=== PATIENT | female | born 1980 | race Caucasian/White ===

== ENCOUNTER 2021-04-19 17:29 | Emergency (ER) | payer MEDICAID ==
[~2021-04-19] VITALS: Ht 165.1 cm; Wt 82.6 kg
[2021-04-19 17:39] VITALS: BP 141/88
--- NOTE | 2021-04-19 17:42 | NUR ---
PT TO WAIT IN TRIAGE ROOM FOR D/C INSTRUCTIONS.
--- NOTE | 2021-04-19 17:43 | NUR ---
BREANA LAUREANO IN TRIAGE FOR FURTHER PATIENT EVALUATION.
[2021-04-19] MEDS ORDERED: POLY10SO3 OP (17:49)
--- NOTE | 2021-04-19 18:00 | NUR ---
Patient discharged with v/s stable. Written and verbal after care instructions given and explained. Patient alert, oriented and verbalized understanding of instructions. Ambulatory with steady gait. All questions addressed prior to discharge. ID band removed. Patient advised to follow up with PMD. Rx of POLYMYXIN EYE DROPS given. Patient educated on indication of medication including possible reaction and side effects. Opportunity to ask questions provided and answered.
== END 2021-04-19 18:00 | disposition home or self-care (01) ==
LOC: MED 17:29
DX: H10.9 Unspecified conjunctivitis (principal); B96.89 Other specified bacterial agents as the cause of diseases classified elsewhere; Z79.899 Other long term (current) drug therapy
CPT/HCPCS: 99283